=== PATIENT | male | born 1995 | race Caucasian/White ===

== ENCOUNTER 2016-05-15 19:19 | Emergency (ER) | payer MEDICAID ==
[~2016-05-15] VITALS: Ht 172.7 cm; Wt 72.6 kg
[~2016-05-15 19:19] MED LIST: LEVO112C2 PO; [UNRECOGNIZED DRUG - REMARK]
[2016-05-15 19:28] VITALS: BP 139/78; PULSE 54; RESP 18; TEMP 97.7; O2SAT 98
--- NOTE | 2016-05-15 19:42 | NUR ---
Placed in room 02 .To gown for exam. Side rails up. Report given to LINN Red.
--- NOTE | 2016-05-15 19:45 | NUR ---
Patient ambulatory to Radiology with tech.
--- NOTE | 2016-05-15 19:50 | NUR ---
Pt states he injured his R wrist playing basketball last saturday. Notes pain 10/18. Good cms. Swelling and bruising noted at the injury site. Will continue to monitor. AAOx4. No distress noted.
--- NOTE | 2016-05-15 20:05 | NUR ---
JORGE Black assessing pt at bedside.
[2016-05-15] MEDS ORDERED: ACETAMINOPHEN/CODEINE 300 MG-30 MG TABLET PO ONE (20:15)
[2016-05-15 21:13] VITALS: BP 139/78; PULSE 64; RESP 18; TEMP 97.7; O2SAT 98
--- NOTE | 2016-05-15 21:13 | NUR ---
Patient given written and verbal discharge instructions and verbalizes understanding. ER MEDICAL DIRECTOR discussed with patient the results and treatment provided. Patient in stable condition. ID arm band removed. Rx of tylenol given. Patient educated on pain management and to follow up with PMD. Pain Scale 2/10. Opportunity for questions provided and answered.
== END 2016-05-15 21:13 | disposition home or self-care (01) ==
LOC: SED 19:19
DX: S62.354A Nondisplaced fracture of shaft of fourth metacarpal bone, right hand, initial encounter for closed fracture (principal); R03.0 Elevated blood-pressure reading, without diagnosis of hypertension; X58.XXXA Exposure to other specified factors, initial encounter; Y93.67 Activity, basketball; Y99.8 Other external cause status; Y92.89 Other specified places as the place of occurrence of the external cause
CPT/HCPCS: 99284

== ENCOUNTER 2017-05-06 11:19 | Emergency (ER) | payer MEDICAID ==
[~2017-05-06] VITALS: Ht 172.7 cm; Wt 75.7 kg
[2017-05-06 11:19] VITALS: BP_SYST 140
[~2017-05-06 11:19] MED LIST changes: -[UNRECOGNIZED DRUG - REMARK]
[2017-05-06 13:54] VITALS: BP_SYST 140
== END 2017-05-06 13:54 | disposition home or self-care (01) ==
LOC: SED 11:19
DX: S90.31XA Contusion of right foot, initial encounter (principal); E07.9 Disorder of thyroid, unspecified; Z79.899 Other long term (current) drug therapy; X58.XXXA Exposure to other specified factors, initial encounter; Y93.89 Activity, other specified; Y92.89 Other specified places as the place of occurrence of the external cause; Y99.8 Other external cause status
CPT/HCPCS: 99284

== ENCOUNTER 2017-11-26 21:34 | Emergency (ER) | payer MEDICAID ==
[~2017-11-26] VITALS: Ht 172.7 cm; Wt 74.8 kg
[2017-11-26 21:41] VITALS: BP_SYST 142
[2017-11-26] MEDS ORDERED: KETOROLAC TROMETHAMINE 60 MG/2 ML VIAL IM ONE (22:00)
[2017-11-26 22:24] LABS: BILIRUBIN,URINE NEGATIVE (NEGATIVE); BLOOD, URINE NEGATIVE (NEGATIVE); CLARITY/URINE CLEAR (CLEAR); COLOR,URINE YELLOW (YELLOW); GLUCOSE,URINE NEGATIVE (NEGATIVE); KETONES,URINE NEGATIVE (NEGATIVE); LEUKOCYTE ESTERASE ,URINE NEGATIVE (NEGATIVE); NITRITE, URINE NEGATIVE (NEGATIVE); PROTEIN URINE NEGATIVE (NEGATIVE); UROBILINOGEN,URINE 0.2 (0.2-1.0)
[2017-11-26 22:36] VITALS: BP_SYST 139
== END 2017-11-26 22:36 | disposition home or self-care (01) ==
LOC: SED 21:34
DX: K40.20 Bilateral inguinal hernia, without obstruction or gangrene, not specified as recurrent (principal); R03.0 Elevated blood-pressure reading, without diagnosis of hypertension
CPT/HCPCS: 81003; 96372; 99283; J1885

== ENCOUNTER 2019-04-05 23:54 | Emergency (ER) | payer MEDICAID ==
[~2019-04-05] VITALS: Ht 172.7 cm; Wt 84.8 kg
[2019-04-06 00:03] VITALS: BP_SYST 135
--- NOTE | 2019-04-06 01:06 | NUR ---
Placed in room 03 . Placed on monitoring tech, blood pressure machine and pulse oximeter. To gown for exam. Side rails up.
--- NOTE | 2019-04-06 01:07 | NUR ---
Patient complains of intermittent sharp pain to sternum that started after taking a sip of water around 9pm. Pt states that he feels numbness/tingling to bilateral hands that his "reflexes feel a little slow." Pt felt dizzy at the time but resolved. Pt denies N/V, headache, or blurred vision. No other injuries/complaints per patient or noted.
--- NOTE | 2019-04-06 01:09 | NUR ---
ER Dr. Austin at bedside examining patient.
--- NOTE | 2019-04-06 01:26 | NUR ---
Medications were given, pt tolerated well. No ADverse reaction, will continue to monitor.
--- NOTE | 2019-04-06 01:27 | NUR ---
Xray at bedside. Pt tolerated well.
[2019-04-06] MEDS ORDERED: MAG HYDROX/AL HYDROX/SIMETH 30 ML, DICYCLOMINE HCL 20 MG, LIDOCAINE VISCOUS 2% 15ML (PO... PO ONE ×3 (01:30)
[2019-04-06] MEDS ORDERED: PANTOPRAZOLE SODIUM 40 MG/VIAL (PROTONIX) IVP ONE (01:30)
--- NOTE | 2019-04-06 03:00 | NUR ---
Pt resting in ED bed comfortably. No acute distress.
[2019-04-06 03:30] VITALS: BP_SYST 116
--- NOTE | 2019-04-06 03:30 | NUR ---
Patient given written and verbal discharge instructions and verbalizes understanding. ER MD discussed with patient the results and treatment provided. Patient in stable condition. ID arm band removed. IV catheter removed intact and dressing applied, no active bleeding. Rx of Protonix given. Patient educated on pain management and to follow up with PMD. Pain Scale 0/10. Opportunity for questions provided and answered. Medication side effect sheet provided.
== END 2019-04-06 03:30 | disposition home or self-care (01) ==
LOC: SED 23:54
DX: K21.0 Gastro-esophageal reflux disease with esophagitis (principal); R07.9 Chest pain, unspecified; F17.290 Nicotine dependence, other tobacco product, uncomplicated
CPT/HCPCS: 71045; 93005; 96374; 99283; C9113; J2001

== ENCOUNTER 2022-01-03 04:28 | Emergency (ER) | payer MEDICAID ==
[~2022-01-03] VITALS: Ht 172.7 cm; Wt 88.0 kg
[2022-01-03 04:36] VITALS: BP_SYST 141
--- NOTE | 2022-01-03 04:47 | NUR ---
Patient triaged and placed in room 3. VSS and patient appears in no acute distress at this time. MD Liao notified of need for MSE. Triage report endorsed to LINN Sanders.
--- NOTE | 2022-01-03 05:19 | NUR ---
DR ARDON IN THE ROOM EXAMINING PATIENT
[2022-01-03] MEDS ORDERED: ALBUTEROL SULFATE 0.083% 2.5 MG/3 ML VIAL.NEB INH ONE (06:30)
[2022-01-03 06:46] LABS: BASOPHILS % (AUTO) 0.9 % (0.0-2.0); EOSINOPHILS # (AUTO) 0.2 K/uL (0.0-0.4); EOSINOPHILS % (AUTO) 4.1 % (0.0-4.0); HEMATOCRIT 45.6 % (36-54); HEMOGLOBIN 15.7 g/dL (14.0-18.0); LYMPHOCYTES # (AUTO) 1.5 K/uL (1.0-5.5); LYMPHOCYTES % (AUTO) 29.2 % (20.5-51.5); MEAN CORPUSCULAR HEMOGLOBIN 30 pg (27-31); MEAN CORPUSCULAR HGB CONC 34 % (32-36); MEAN CORPUSCULAR VOLUME 88 fL (79.0-98.0); MONOCYTES # (AUTO) 0.5 K/uL (0.0-1.0); MONOCYTES % (AUTO) 10.4 % (1.7-9.3); NEUTROPHILS # (AUTO) 2.8 K/uL (1.8-7.7); NEUTROPHILS % (AUTO) 55.4 % (40.0-70.0); PLATELET COUNT (AUTO) 223 K/uL (130-430); RED BLOOD CELL COUNT(AUTO) 5.18 MIL/uL (4.2-6.2); RED CELL DISTRIBUTION WIDTH 12.8 % (9.0-15.0); WHITE BLOOD COUNT (AUTO) 5.1 K/uL (4.8-10.8)
[2022-01-03 06:59] LABS: ANION GAP 3 (5-15); CALCIUM 8.8 mg/dL (8.4-11.0); CHLORIDE 104 mmol/L (98-107); CREATININE 1.05 mg/dL (0.55-1.30); GLUCOSE 102 mg/dL (70-99); POTASSIUM 4.8 mmol/L (3.5-5.1); UREA NITROGEN, BLOOD 21 mg/dL (8-21)
[2022-01-03 07:07] LABS: ALANINE AMINOTRANSFERASE 23 U/L (12-78); ALBUMIN 3.6 g/dL (3.4-4.8); ASPARTATE AMINOTRANSFERASE 18 U/L (10-37); TOTAL BILIRUBIN 0.3 mg/dL (0.0-1.0)
--- NOTE | 2022-01-03 07:07 | NUR ---
REPORT RECEIVED, CARE ASSUMED, PT ASSESSED. PT RESTING QUIETLY, RESP EASY MM PINK, NAD. LILLIAN Melissa LAB RESULTS
[2022-01-03 07:10] LABS: GFR AFRICAN AMERICAN 111 mL/min (>90)
[2022-01-03] MEDS ORDERED: GUAI100S14 PO (07:37)
[2022-01-03] MEDS ORDERED: IBUP-1969 PO (07:37)
[2022-01-03 07:51] VITALS: BP_SYST 119
--- NOTE | 2022-01-03 07:54 | NUR ---
Patient given written and verbal discharge instructions and verbalizes understanding. ER MD discussed with patient the results and treatment provided. Patient in stable condition. ID arm band removed. Rx of IBUPROFEN AND ROBITUSSIN given. Patient educated on pain management and to follow up with PMD. Pain Scale 0. Opportunity for questions provided and answered. Medication side effect fact sheet provided.
== END 2022-01-03 07:54 | disposition home or self-care (01) ==
LOC: SED 04:28
DX: J20.8 Acute bronchitis due to other specified organisms (principal); R07.89 Other chest pain; Z79.899 Other long term (current) drug therapy
CPT/HCPCS: 80053; 85025; 85379; 84484; 36415; 93005; 71045; 94640; 99285; J7613